=== PATIENT | male | born 1960 | race Caucasian/White ===

== ENCOUNTER → 2018-10-23 | Outpatient (CLI) | payer OTHER ==
--- NOTE | 2018-10-23 14:57 | PCVCIMAG ---
EXAM: BILATERAL CAROTID DUPLEX INDICATION: Carotid Occlusive Disease. FINDINGS: Doppler Measurements (centimeters per second): RIGHT: Peak CCA-82, Peak ECA-99, Diastolic ICA-16, Peak ICA-96, ICA/CCA Ratio-1.2. LEFT: Peak CCA-77, Peak ECA-74, Diastolic ICA-30, Peak ICA-97, ICA/CCA Ratio-1.3. RIGHT CAROTID: The carotid bulb has mild plaque. The proximal internal carotid artery shows <40% stenosis. The common carotid artery shows no significant stenosis. The external carotid artery shows no significant stenosis. LEFT CAROTID: The carotid bulb has mild plaque. The proximal internal carotid artery shows <40% stenosis. The common carotid artery shows no significant stenosis. The external carotid artery shows no significant stenosis. Antegrade flow in both vertebral arteries. IMPRESSION: <40% stenosis of the right internal carotid artery with mild plaque. <40% stenosis of the left internal carotid artery with mild plaque. LOC:[place] [id number]
--- NOTE | 2018-10-23 16:56 | PCVCIMAG ---
APPROVED REPORT Study performed: 10/23/2018 14:21:55 Exam: Stress Echocardiogram Indication: CAD, elevated coronary calcium score Patient Location: Echo lab Stress Nurse: Alisa Molina RN Room #: 2 Status: routine Ht: 6 ft 0 in HR: 60 bpm BP: 134/80 mmHg Rhythm: NSR Medical History Medical History: CAD non obstructive Medications: Atenolol Cardiac Risk Factors: HTN, Hyperlipidemia, Tobacco History (Current/Recent) Previous Cardiac Procedures: none Exercise History: Physically active Procedure The patient underwent an Exercise Stress Test using the Kristopher Protocol. Blood pressure, heart rate, and EKG were monitored. An Echocardiogram was performed by control room technician in four stages in quad fashion. At peak stress, four selected images were obtained and placed side by side with resting images for comparison. Stress Test Details Stress Test: Exercise stress testing was performed using a Kristopher protocol/manual protocol. HR Resting HR: 56 bpmMax Heart Rate (APMHR): 163 bpm Max HR Achieved: 118 bpmTarget HR (85% APMHR): 138 bpm % of APMHR: 72 Recovery HR: 65 bpm HR response to stress: Blunted HR response to stress BP Resting BP: 134/80 mmHg Max BP: 154/76 mmHg Recovery BP: 140/76 mmHg BP response to stress: Normal blood pressure response to stress. ECG Resting ECG: Sinus Rhythm Stress ECG: Sinus Rhythm ST Change: Non-ischemic Arrhythmia: None Recovery ECG: Sinus Rhythm Recovery ST Change: Non-ischemic Recovery Arrhythmia: None Clinical Reason for Termination: Maximal effort Stress Symptoms: knee pain Exercise duration: 6 min 41 sec Highest Stage Achieved: Stage 2: 2.5 mph at 12% grade. Exercise capacity: 8.8 METs Overall Exercise Capacity for Age: Poor Scale: Active Angina Score: None No complications. Stress ECG Conclusion The patient exercised according to the KRISTOPHER protocol for 6:41mins; achieving a work level of 8.8METS. The resting heart rate of 60 bpm claudette to a maximum heart rate of 118 bpm. This value represents 72% of the maximal, age-predicted heart rate. The resting blood pressure of 134/80 mmHg, claudette to a maximum blood pressure of 154/76 mmHg. The exercise test was stopped due to fatigue and knee pain. Pre-Stress Echo The resting Echocardiogram showed normal left ventricular contractility with an estimated Ejection Fraction of about 55-60%. Normal wall motion in all segments on baseline images. Post-Stress Echo The stress Echocardiogram showed normal left ventricular contractility with an estimated Ejection Fraction of about 60-65%. Normal augmentation of wall motion in all segments on post stress images. Clinical No clinical or ECG evidence for ischemia. Conclusion Clinical Response: Non-ischemic Exercise Capacity: Below Average Stress ECG Response: Indeterminant Stress Echo Images: Non-ischemic Normal stress echocardiogram with submaximal exercise stress. No clinical, EKG or echocardiographic evidence for ischemia. <Conclusion> Normal stress echocardiogram with submaximal exercise stress. No clinical, EKG or echocardiographic evidence for ischemia.
== END | disposition home or self-care (01) ==
LOC: PCVCIMAG 13:20
PROVIDERS: ATTEND Internal Medicine Cardiovascular Disease
DX: I65.23 Occlusion and stenosis of bilateral carotid arteries (principal); R09.89 Other specified symptoms and signs involving the circulatory and respiratory systems; R07.9 Chest pain, unspecified; R06.09 Other forms of dyspnea; R93.1 Abnormal findings on diagnostic imaging of heart and coronary circulation; I25.10 Atherosclerotic heart disease of native coronary artery without angina pectoris; I10 Essential (primary) hypertension; E66.9 Obesity, unspecified; F17.200 Nicotine dependence, unspecified, uncomplicated; Z92.89 Personal history of other medical treatment; Z88.8 Allergy status to other drugs, medicaments and biological substances
CPT/HCPCS: 93325; 93351; 93880